=== PATIENT | female | born 1995 | race Caucasian/White ===

== ENCOUNTER 2018-08-14 23:02 | Observation (INO) | payer MEDICAID ==
[~2018-08-14] VITALS: Ht 160 cm; Wt 87.5 kg
[2018-08-15] MEDS ORDERED: prenatal vitamin (00:02)
[2018-08-15] MEDS ORDERED: FISH OIL (00:46)
[2018-08-15] MEDS ORDERED: ZANTAC (00:46)
[2018-08-15] MEDS ORDERED: VITAMIN (02:30)
== END 2018-08-15 02:34 | disposition home or self-care (01) ==
LOC: 8 EST LDRP 23:02
PROVIDERS: ADMIT Obstetrics & Gynecology; ATTEND Obstetrics & Gynecology
DX: O21.2 Late vomiting of pregnancy (principal); Z3A.37 37 weeks gestation of pregnancy
CPT/HCPCS: 76805; 76818; 99281; G0378

== ENCOUNTER 2022-08-31 23:29 | Emergency (ER) | payer MEDICAID, OTHER ==
[~2022-08-31] VITALS: Ht 157.5 cm; Wt 79.4 kg
[~2022-08-31 23:29] MED LIST: FISH OIL; VITAMIN; ZANTAC; prenatal vitamin
[2022-09-01 00:16] VITALS: O2SAT 99
[2022-09-01] MEDS ORDERED: IBUPROFEN 600MG TABLET PO ONE (02:30)
[2022-09-01] MEDS ORDERED: KETOROLAC 60MG/2ML VIAL IM ONE (02:45)
[2022-09-01] MEDS ORDERED: DEXAMETHASONE 1 MG/ML ORAL SYR PO ONE (02:45)
[2022-09-01] MEDS ORDERED: ACETAMINOPHEN 160MG/5ML UDC PO ONE (02:45)
[2022-09-01 03:30] VITALS: BP 122/94
[2022-09-01] MEDS: DEXAMETHASONE 10 MG/ML VIAL PO NR ×3 (03:30→03:57)
[2022-09-01] MEDS ORDERED: AMOX1TAB16 MT (03:34)
[2022-09-01] MEDS ORDERED: IBUP-2458 MT (03:34)
[2022-09-01] MEDS ORDERED: ACET-2084 MT (03:34)
[2022-09-01 03:58] VITALS: PULSE 100; RESP 20; TEMP 98.2
== END 2022-09-01 03:50 | disposition home or self-care (01) ==
LOC: ER 23:29
DX: J03.90 Acute tonsillitis, unspecified (principal); K04.7 Periapical abscess without sinus; Z98.890 Other specified postprocedural states; Z79.899 Other long term (current) drug therapy
CPT/HCPCS: 81025; 99283; 87430; 87070; 96372; J1100; J1885; Z7610; J8540

== ENCOUNTER 2024-08-04 23:58 | Emergency (ER) | payer MEDICAID, OTHER ==
[~2024-08-04] VITALS: Ht 157.5 cm; Wt 77.0 kg
[~2024-08-04 23:58] MED LIST changes: +ACET-2084 MT; +AMOX1TAB16 MT; +IBUP-2458 MT
[2024-08-05 00:07] VITALS: O2SAT 99
[2024-08-05] MEDS ORDERED: METH4TAB95 MT (01:48)
[2024-08-05] MEDS ORDERED: IBUP-2030 MT (01:48)
[2024-08-05] MEDS ORDERED: LIDO700A30 TP (01:48)
[2024-08-05] MEDS: KETOROLAC 30MG/ML VIAL IM ONE (01:56)
[2024-08-05] MEDS: LIDOCAINE 5% PATCH TOP SCH (02:00)
[2024-08-05 02:02] VITALS: BP 100/60; PULSE 89; RESP 20; TEMP 37.1; O2SAT 100
== END 2024-08-05 02:04 | disposition home or self-care (01) ==
LOC: ER 23:58
DX: M54.16 Radiculopathy, lumbar region (principal); Z79.899 Other long term (current) drug therapy; Z98.890 Other specified postprocedural states
CPT/HCPCS: 81025; 99283; 96372; J1885; Z7610